=== PATIENT | male | born 1985 ===

== ENCOUNTER 2025-02-04 12:26 | Emergency (ER) | payer OTHER ==
[~2025-02-04] VITALS: Ht 180.3 cm; Wt 90.9 kg
[2025-02-04 14:44] LABS: BASOPHILS % (AUTO) 0.2 % (0.0-2.0); EOSINOPHILS % (AUTO) 0.3 % (1.0-6.0); HEMATOCRIT 36.7 % (41-53); HEMOGLOBIN 12.5 g/dL (13.5-17.5); LYMPHOCYTES # (AUTO) 2.1 K/uL (1.0-4.8); MEAN CORPUSCULAR HEMOGLOBIN 29.8 pg (26.0-34.0); MEAN CORPUSCULAR VOLUME 88 fL (80-100); MONOCYTES # (AUTO) 1.1 K/uL (0.1-1.0); MONOCYTES % (AUTO) 8.1 % (2.0-9.0); NEUTROPHILS # (AUTO) 10.5 K/uL (1.8-7.7); NEUTROPHILS % (AUTO) 76.4 % (40.0-70.0); PLATELET COUNT (AUTO) 306 K/uL (150-450); RED CELL DISTRIBUTION WIDTH 13.6 % (11.5-14.5); WHITE BLOOD COUNT (AUTO) 13.8 K/uL (4.5-11.0)
[2025-02-04 14:50] LABS: ANION GAP 7 mmol/L (8-16); CALCIUM, TOTAL 9.3 mg/dL (8.8-10.5); CARBON DIOXIDE 30 mmol/L (22-29); CHLORIDE 99 mmol/L (98-107); CREATININE 0.78 mg/dL (0.60-1.30); GLOMERULAR FILTR. RATE CALC > 60 mL/min (>60); GLUCOSE,RANDOM 91 mg/dL (70-110); SODIUM SERUM 136 mmol/L (136-145); UREA NITROGEN, BLOOD 13 mg/dL (7-18)
[2025-02-04 14:59] LABS: LACTIC ACID 1.2 mmol/L (0.4-2.0)
[2025-02-04] MEDS: CLINDAMYCIN 900 MG/D5% WATER 50 ML IV ONE (15:39)
[2025-02-04] MEDS: HYDROCODONE/ACETAMINOPHEN 5-325 MG TABLET PO ONE (19:55)
[2025-02-04] MEDS: KETOROLAC TROMETHAMINE 30 MG/ML VIAL IVP ONE (20:16)
[2025-02-05] MEDS: CLINDAMYCIN 600 MG/D5% WATER 50 ML IV ONE (00:30)
[2025-02-05] MEDS: MORPHINE SULFATE 2 MG/ML SYRINGE IVP ONE (00:46)
[2025-02-05 01:00] VITALS: BP 119/71; PULSE 75; RESP 16; TEMP 97.3; O2SAT 98
== END 2025-02-05 01:25 | disposition short-term general hospital (02) ==
LOC: EMS 12:28
DX: K04.7 Periapical abscess without sinus (principal); K74.60 Unspecified cirrhosis of liver
CPT/HCPCS: 99285; 96365; 96375 ×2; 80048; 83605; 85025; 36415; 96366; J1885; J3490 ×2; J2270